=== PATIENT | male | born 1960 | race Caucasian/White ===

== ENCOUNTER 2025-04-10 21:58 | Outpatient (CLI) | payer OTHER, SELFPAY | END 2025-04-10 21:59 | disposition home or self-care (01) | LOC: AMB 04-12 16:54 | PROVIDERS: Visit Provider Internal Medicine | DX: S39.92XA Unspecified injury of lower back, initial encounter (principal); V48.0XXA Car driver injured in noncollision transport accident in nontraffic accident, initial encounter; Y92.488 Other paved roadways as the place of occurrence of the external cause | CPT/HCPCS: A0425; A0433 ==